=== PATIENT | male | born 1980 | race Hispanic/Latino ===

== ENCOUNTER 2022-06-05 17:40 | Emergency (ER) | payer OTHER ==
[2022-06-05] VITALS (8 sets, daily range): BP systolic 123–147; BP diastolic 75–84
[~2022-06-05] VITALS: Ht 167.6 cm; Wt 65.1 kg
[2022-06-05 18:22] LABS: HEMATOCRIT 43.6 % (39.0-50.0); HEMOGLOBIN 14.2 g/dl (14.0-18.0); IMMATURE GRANULOCYTES 0.1 % (0.0-5.0); MEAN CELL VOLUME 81.3 fL CALC (80.0-100.0); MEAN CORPUSCULAR HGB 26.5 pG CALC (26.0-32.0); MEAN CORPUSCULAR HGB CONC 32.6 g/dL CAL (32.0-36.0); NEUT# 5.73 thou/uL (1.82-7.42); RED BLOOD COUNT 5.36 mill/uL (4.70-6.10); RED CELL DISTRI WIDTH 14.1 % (11.5-15.5)
[2022-06-05 18:36] LABS: ALBUMIN 4.3 g/dL (3.2-5.0); ALKALINE PHOSPHATASE 83 u/l (38-126); ANION GAP 13 (6-22 (CALC)); BILIRUBIN, TOTAL 0.4 mg/dL (0.0-1.4); BUN 12 mg/dL (9-20); BUN/CREATININE RATIO 12 (12-20 (CALC)); CARBON DIOXIDE 25 mmol/l (22-30); CHLORIDE 105 mmol/l (95-108); GFR FOR AFR.AMER. > 60 ML/MIN (>=60 (CALC)); GFR OTHER RACES > 60 ML/MIN (>=60 (CALC)); POTASSIUM 3.7 mmol/l (3.5-5.1); SGOT/AST 36 u/l (17-59); SODIUM 139 mmol/l (137-146); TOTAL PROTEIN 7.3 g/dL (6.3-8.2)
[2022-06-05 19:45] LABS: URINE BILIRUBIN - DIPSTICK NEGATIVE (NEGATIVE); URINE BLOOD DIPSTICK NEGATIVE (NEGATIVE); URINE CLARITY CLEAR; URINE COLOR YELLOW; URINE GLUCOSE - DIPSTICK NEGATIVE (NEGATIVE); URINE KETONE NEGATIVE (NEGATIVE); URINE LEUK ESTERASE NEGATIVE (Negative); URINE NITRITE - DIPSTICK NEGATIVE (Negative); URINE PROTEIN - DIPSTICK NEGATIVE (NEG-TRACE); URINE UROBILINOGEN - DIPSTICK 0.2 E.U./dL (0.2)
[2022-06-05] MEDS ORDERED: NAPROXEN500 MG PO (21:01)
== END 2022-06-05 21:25 | disposition home or self-care (01) | DRG 914 ==
LOC: ED 17:40
PROVIDERS: Nurse Practitioner
DX: S09.90XA Unspecified injury of head, initial encounter (principal); V44.6XXA Car passenger injured in collision with heavy transport vehicle or bus in traffic accident, initial encounter; S70.211A Abrasion, right hip, initial encounter; R07.89 Other chest pain